=== PATIENT | male | born 1975 | race Hispanic/Latino ===

== ENCOUNTER 2017-07-09 11:09 | Emergency (ER) | payer BC ==
[2017-07-09 11:33] LABS: Bilirubin Negative (Negative); Blood, Urine Trace (Negative); Clarity Clear (Clear); Glucose, Urine (Dipstick) 500 mg/dL (Negative); Leukocyte Negative (Negative); Nitrite Negative (Negative); Protein, Urine (Dipstick) 100 mg/dL (Neg-Trace); Urobilinogen 0.2 mg/dL (0.2-1.0)
[2017-07-09 11:45] LABS: RBC/HPF 0-3 HPF (0-3)
[2017-07-09 11:46] LABS: Bacteria/HPF None Seen HPF (None Seen); Squamous Epithelial 0-3 HPF (0-3); WBC/HPF 0-3 HPF (0-3)
[2017-07-09 11:48] LABS: Anion Gap 17 mmol/L (10-20); BUN (Urea Nitrogen) 14 mg/dL (8.9-20.6); Calc. Creatinine Clearance 0 mL/min (70-130); Calcium 10.2 mg/dL (7.8-10.44); Carbon Dioxide 22 mmol/L (22-29); Chloride 95 mmol/L (98-107); Estimated GFR-MDRD 65; Sodium 130 mmol/L (136-145)
[2017-07-09 11:49] LABS: Glucose 662 mg/dL (70-105)
[2017-07-09] MEDS ORDERED: Insulin Regular 300 UNITS/3 ML VIAL ONE (12:19)
== END 2017-07-09 13:58 | disposition home or self-care (01) ==
LOC: SCSER 11:09
DX: E11.9 Type 2 diabetes mellitus without complications (principal); I10 Essential (primary) hypertension; F17.210 Nicotine dependence, cigarettes, uncomplicated; Z79.899 Other long term (current) drug therapy
CPT/HCPCS: 36416; 80048; 81003; 81015; 82010; 96361; 96374; J1815